=== PATIENT | male | born 1980 | race American Indian/Alaskan Native ===

== ENCOUNTER → 2016-09-12 12:35 | Emergency (ER) | payer MEDICAID ==
[2016-09-12 12:35] VITALS: BMI 27.2
== END | disposition left against medical advice (07) ==
LOC: C.ER 12:35
DX: Z04.8 Encounter for examination and observation for other specified reasons (principal); Z02.9 Encounter for administrative examinations, unspecified

== ENCOUNTER 2016-09-18 20:55 | Inpatient (IN) | payer MEDICAID, OTHER ==
[2016-09-18 20:55] VITALS: BMI 27.2
[2016-09-18 21:48] LABS: BASO # 0.1 K/uL (0.0-0.2); BASO % 1.7 % (0.0-2.0); EOS % 0.1 % (0.0-4.0); HEMATOCRIT 45.8 % (35.0-51.0); LYMPH # 1.4 K/uL (1.0-4.3); LYMPH % 44.7 % (20.0-40.0); MEAN CORPUSCULAR HEMOGLOBIN 28.9 pg (27.0-31.0); MEAN PLATELET VOLUME 6.3 fL (7.2-11.7); MONO # 0.2 K/uL (0.0-0.8); MONO % 7.7 % (0.0-10.0); NRBC % 0.1 % (0.0-2.0); RED CELL DISTRIBUTION WIDTH 14.1 % (11.5-14.5); WHITE BLOOD COUNT 3.1 K/uL (4.8-10.8)
[2016-09-18 21:55] LABS: URINE BILIRUBIN NEGATIVE (NEGATIVE); URINE BLOOD NEGATIVE (NEGATIVE); URINE COLOR Yellow (YELLOW); URINE GLUCOSE (UA) NORMAL (Normal); URINE KETONE NEGATIVE (NEGATIVE); URINE LEUKOCYTE ESTERASE NEG Leu/uL (Negative); URINE PROTEIN NEGATIVE (NEGATIVE); URINE UROBILINOGEN NORMAL mg/dL (0.2-1.0); WBC URINE < 1 /hpf (0-5)
[2016-09-18 21:55] LABS: POTASSIUM 4.4 mmol/L (3.6-5.2)
[2016-09-18 21:58] LABS: ALB/GLOB RATIO 1.3 (1.0-2.1); BILIRUBIN,TOTAL 2.7 mg/dL (0.2-1.3); CALCIUM 8.5 mg/dl (8.6-10.4); TOTAL PROTEIN 7.2 g/dL (6.3-8.3)
--- NOTE | 2016-09-18 23:57 | C.PDOC ---
History Of Present Illness 36 year old male patient presents to the ED for alcohol detox. Patient reports last drink was today but denies drug use. Patient denies nausea, vomiting, diarrhea, fever, chills, suicidal ideation, or any other complaints. Chief Complaint (Nursing): Substance Abuse History Per: Patient History/Exam Limitations: no limitations Onset/Duration Of Symptoms: Hrs Current Symptoms Are (Timing): Still Present Modifying Factor(s): Alcohol Severity: Mild Associated Symptoms: denies: Suicidal Thoughts Recent travel outside of the [place]: No Past Medical History Reviewed: Historical Data, Nursing Documentation, Vital Signs Vital Signs: Last Vital Signs Temp 98.7 F 09/18/16 21:16 Pulse 100 H 09/18/16 21:16 Resp 20 09/18/16 21:16 BP 135/92 H 09/18/16 21:16 Pulse Ox 95 09/19/16 00:02 - Medical History PMH: Anxiety (no meds), Seizures (Alcohol related) Denies: Diabetes, Hepatitis, HIV, HTN, Sexually Transmitted Disease - [facility] Procedures ALCOHOL DETOXIFICATION (01/05/15) ALCOHOLISM COUNSELLING (01/05/15) OTHER GROUP THERAPY (01/05/15) Family History: States: Diabetes - Social History Hx Tobacco Use: No Hx Alcohol Use: Yes Hx Substance Use: No - Immunization History Hx Tetanus Toxoid Vaccination: No Hx Influenza Vaccination: No Hx Pneumococcal Vaccination: No Review Of Systems Except As Marked, All Systems Reviewed And Found Negative. Constitutional: Positive for: Other (Alcohol intoxication. +AOB). Negative for : Fever, Chills Gastrointestinal: Negative for: Nausea, Vomiting, Diarrhea Psych: Negative for: Suicidal ideation Physical Exam - Physical Exam Appears: Non-toxic, No Acute Distress Skin: Warm, Dry Head: Atraumatic, Normacephalic Eye(s): bilateral: Normal Inspection Chest: Symmetrical Cardiovascular: Rhythm Regular, No Murmur Respiratory: Normal Breath Sounds, No Accessory Muscle Use, No Rales, No Rhonchi , No Wheezing Gastrointestinal/Abdominal: Soft, No Tenderness Neurological/Psych: Oriented x3, Normal Speech, Normal Cognition ED Course And Treatment - Laboratory Results Result Diagrams: 09/18/16 21:43 09/18/16 21:43 O2 Sat by Pulse Oximetry: 95 (Room air) Pulse Ox Interpretation: Normal Medical Decision Making Medical Decision Making: Plans: -Alcohol detox -Reassess and disposition Disposition - Disposition Disposition Time: 22:30 Condition: STABLE - Clinical Impression Clinical Impression: Alcohol dependence - Scribe Statement The provider has reviewed the documentation as recorded by the Scribe Maria Del Carmen liu All medical record entries made by the Scribe were at my direction and personally dictated by me. I have reviewed the chart and agree that the record accurately reflects my personal performance of the history, physical exam, medical decision making, and the department course for this patient. I have also personally directed, reviewed, and agree with the discharge instructions and disposition.
[2016-09-19] MEDS: Multiple Vitamins Tab PO SCH (13:22)
--- NOTE | 2016-09-19 13:59 | PCM.PSYCH ---
Initial Psychiatric Evaluation - Initial Psychiatric Evaluation Type of Admission: Voluntary Legal Status: Capacity Chief Complaint (in patient's own words): "I need to stop drinking" History of Present Illness and Precipitating Events: Pt. is a 35 y/o M, employed and domiciled, w/ PMHx of EtOH use disorder. Pt. admits to drinking half a pint of liquor a day. Pt. reports that he has been drinking since he was 21 years old, and he states that he was sober for two years until he relapsed one month ago. Pt.s last drink was at 9pm last night. Pt. denies any recreational drug use. Pt. complains of anxiety, but does not complain of tremors or withdrawal symptoms. Pt. does indeed have a hx of seizures. Pt. is single, w/ 2 children (11 and 3). Pt. states that his FHx is not remarkable for psychiatric illness or substance abuse, however, he admits that everyone in his family drinks. Moving forward, Pt. plans to pursue outpatient counseling and attend AA meetings in order to treat his EtOH use disorder Current Medications: Active Medications Generic Name Dose Route Start Last Admin Trade Name Freq PRN Reason Stop Dose Admin Clonidine HCl 0.1 mg 09/19/16 05:36 09/19/16 12:35 Catapres PO 0.1 mg Q8H PRN Administration Withdrawal Symptoms Clonidine HCl 0.1 mg 09/19/16 12:51 Catapres PO Q4H PRN Symptoms of alcohol withdrawl Folic Acid 1 mg 09/19/16 13:00 09/19/16 13:22 Folic Acid PO Not Given DAILY LAINA Gabapentin 300 mg 09/19/16 14:00 09/19/16 13:26 Neurontin PO 300 mg TID LAINA Administration Hydroxyzine HCl 25 mg 09/19/16 05:36 Atarax PO Q8H PRN Anxiety Lorazepam 1 mg 09/19/16 10:59 09/19/16 11:15 Ativan PO 1 mg Q6 PRN Administration Alcohol withdrawal symptoms Lorazepam 2 mg 09/19/16 13:00 09/19/16 13:26 Ativan PO 09/23/16 12:59 2 mg Q8H LAINA Administration Taper Multivitamins 1 tab 09/19/16 13:00 09/19/16 13:22 Hexavitamin PO Not Given DAILY LAINA Ondansetron HCl 4 mg 09/19/16 07:23 09/19/16 08:09 Zofran Tab PO 4 mg Q6 PRN Administration Nausea/Vomiting Thiamine HCl 100 mg 09/19/16 13:00 09/19/16 13:22 Vitamin B1 Tab PO Not Given DAILY LAINA Trazodone HCl 100 mg 09/19/16 12:51 Desyrel PO HS PRN Insomnia Past Psychiatric History - Past Psychiatric History Previous Treatment History: None Pertinent Medical Hx (Current Medical&Sleep Prob, Allergies): Allergies Allergy/AdvReac Type Severity Reaction Status Date / Time No Known Allergies Allergy Verified 01/05/15 11:55 Naltrexone [Revia] 50 mg PO DAILY #30 tab 01/09/15 traZODone [Desyrel] 50 mg PO HS PRN #30 tab 01/09/15 Review of Systems - Constitutional Constitutional: Fever, Chills, Weakness - Neurological Neurological: Disequilibrium, Lack of Coordination - Psychiatric Psychiatric: Abnormal Sleep Pattern, Anxiety. absent: Hallucinations, Homicidal Ideation, Paranoia, Suicidal Ideation, Visual Hallucinations Mental Status Examination - Personal Presentation Personal Presentation: Looks stated age - Affect Affect: Constricted - Motor Activity Motor Activity: Calm - Reliability in Providing Information Reliability in Providing Information: Good - Speech Speech: Organized, Relevant - Mood Mood: Depressed - Formal Thought Process Formal Thought Process: No Impairment - Obsessions/Compulsions Obsessions: No Compulsions: No - Cognitive Functions Orientation: Person, Place, Situation, Time Sensorium: Alert Attention/Concentration: Attentive Judgement: Intact, as evidence by: Good judgement, Intact, as evidence by: Insight regarding need for hospitalization Memory: Recent intact, as evidence by: Ability to recall events of the day - Risk Risk: Seizure, Withdrawal, Diminished functioning - Strength & Assets Inventory Strength & Assets Inventory: Cooperative DSM 5 DX - DSM 5 DSM 5 Diagnosis: Alcohol withdrawal Alcohol use d/o - severe - Recommended/Plan of Treatment Treatment Recommendations and Plan of Treatment: Alcohol use Disorder Group therapy, individual therapy, and supportive therapy ND and CBT for abstinence Folic ACid 1mg PO daily Multivitamins 1 tab PO Daily Thiamine HCl 100 mg PO HS PRN Alcohol Withdrawal Clonidine 0.1 mg PO Q8H PRN Gabapentin 300 mg PO TID Hydroxyzine 25 mg PO Q8H PRN Anxiety Lorazepam 1 mg PO Q6 PRN Lorazepam 2mg PO detox 32 min Projected ELOS: 4 days Prognosis: good with treatment - Smoking Cessation Smoking Cessation Initiated: Yes
[2016-09-20] MEDS: Multiple Vitamins Tab PO SCH (09:57)
[2016-09-20] MEDS ORDERED: Vitamins A & D Oint UD Foilpak TOP PRN (13:05)
[2016-09-20 13:35] VITALS: RESP 18
[2016-09-21 08:31] LABS: CHLORIDE 97 mmol/L (98-107); POTASSIUM 4.4 mmol/L (3.6-5.2); SODIUM 137 mmol/L (132-148)
[2016-09-21 08:34] LABS: ALB/GLOB RATIO 1.3 (1.0-2.1); ALKALINE PHOSPHATASE 64 U/L (38-126); ALT/SGPT 255 U/L (21-72); AST/SGOT 141 U/L (17-59); BILIRUBIN,TOTAL 2.1 mg/dL (0.2-1.3); BLOOD UREA NITROGEN 5 mg/dL (9-20); CALCIUM 8.3 mg/dl (8.6-10.4); CARBON DIOXIDE 28 mmol/L (22-30); GFR AFRICAN-AMERICAN > 60; GLUCOSE,RANDOM 128 mg/dL (75-110); TOTAL PROTEIN 6.2 g/dL (6.3-8.3)
[2016-09-21] MEDS: Multiple Vitamins Tab PO SCH (09:35)
--- NOTE | 2016-09-21 14:45 | PCM.PYCHPN ---
Psychiatric Progress Note - Psychiatric Progress Note Patient Chief Complaint: "My eyes looked discolored." Problems Identified/Issues Discussed: Pt. was seen, chart was reviewed, and the events of last night were discussed w / team. Pt. reports that he is generally doing well. Pt. denies any withdrawal sx. Pt. complains that his eyes seem discolored. Pt. denies pain, itchiness, and discharge. Upon exam, eyes were nonicteric and noninjected. No evidence of jaundice. Medication Change: No Medical Record Reviewed: Yes Mental Status Examination - Cognitive Function Orientation: Person, Place, Situation, Time - Mood Mood: Depressed, Neutral - Affect Affect: Broad - Speech Speech: Appropriate - Formal Thought Process Formal Thought Process: No Impairment - Suicidal Ideation Suicidal Ideation: No - Homicidal Ideation Homicidal Ideation: No Goal/Treatment Plan - Goal/Treatment Plan Progress Toward Problem(s) and Goals/Treatment Plan: Alcohol use Disorder Group therapy, individual therapy, and supportive therapy NM and CBT for abstinence Folic ACid 1mg PO daily Multivitamins 1 tab PO Daily Thiamine HCl 100 mg PO HS PRN Alcohol Withdrawal Clonidine 0.1 mg PO Q8H PRN Gabapentin 300 mg PO TID Hydroxyzine 25 mg PO Q8H PRN Anxiety Lorazepam 1 mg PO Q6 PRN Lorazepam 2mg PO detox - Smoking Cessation Smoking Cessation Initiated: No
--- NOTE | 2016-09-22 01:25 | PCM.PYCHPN ---
Psychiatric Progress Note - Psychiatric Progress Note Patient seen today, length of contact: 16 min Patient Chief Complaint: "Ok today" Problems Identified/Issues Discussed: The pt is seen, chart reviewed, case discussed with staff. The pt is compliant with medications and reports no side-effects. Symptoms are improving but needs more time to stabilize. After care discussed, support and psychoeducation given. Medication Change: No Medical Record Reviewed: Yes Mental Status Examination - Cognitive Function Orientation: Person, Place, Situation, Time Memory: Intact Attention: WNL Concentration: WNL Association: WNL Fund of Knowledge: Poor - Mood Mood: Depressed, Neutral - Affect Affect: Broad - Speech Speech: Appropriate - Formal Thought Process Formal Thought Process: No Impairment - Suicidal Ideation Suicidal Ideation: No - Homicidal Ideation Homicidal Ideation: No Goal/Treatment Plan - Goal/Treatment Plan Need for Continued Stay: Discharge may exacerbated symptoms, Severe functional impairment Progress Toward Problem(s) and Goals/Treatment Plan: Alcohol use Disorder Group therapy, individual therapy, and supportive therapy [place] and CBT for abstinence Folic Acid 1mg PO daily Multivitamins 1 tab PO Daily Thiamine HCl 100 mg PO HS PRN Alcohol Withdrawal Clonidine 0.1 mg PO Q8H PRN Gabapentin 300 mg PO TID Hydroxyzine 25 mg PO Q8H PRN Anxiety Lorazepam 1 mg PO Q6 PRN Lorazepam 2mg PO detox Refer to [facility] Estimated Date of D/C: 09/22/16
[2016-09-22 06:04] VITALS: BP 126/87; PULSE 86; TEMP 97.8; O2SAT 97
--- NOTE | 2016-09-22 08:30 | PCM.PYCHDC ---
Mental Status Examination - Mental Status Examination Orientation: Person, Place, Situation, Time Memory: Intact Affect: Broad Speech: Appropriate Attention: WNL Concentration: WNL Association: WNL Fund of Knowledge: WNL Formal Thought Process: No Impairment Suicidal Ideation: No Current Homicidal Ideation?: No Discharge Summary - Discharge Note Reason for Hospitalization: Alcohol withdrawal Alcohol use d/o - severe Laboratory Data: Abnormal Lab Results 09/21/16 08:12 Sodium 137 Potassium 4.4 Chloride 97 L Carbon Dioxide 28 Anion Gap 17 BUN 5 L Creatinine 1.1 Est GFR ( Amer) > 60 Est GFR (Non-Af Amer) > 60 Random Glucose 128 H Calcium 8.3 L Total Bilirubin 2.1 H AST 141 H D ALT 255 H D Alkaline Phosphatase 64 Total Protein 6.2 L Albumin 3.5 Globulin 2.8 Albumin/Globulin Ratio 1.3 Consultations:: List each consultation separately and include: 1. Reason for request. 2. Findings. 3. Follow-up Summary of Hospital Course include:: 1. Description of specific treatment plan utilized for patients during their course of treatmen. 2. Summarize the time- course for resolution of acute symptoms and/or regressed behaviors. 3. Describe issues identified and worked on during hospitalization. 4. Describe medication utilized. 5. Describe medical problems identified and treated. 6. Reassessment of suicide risk Summary of Hospital Course: Pt. is a 35 y/o M, employed and domiciled, w/ PMHx of EtOH use disorder. Pt. admits to drinking half a pint of liquor a day. Pt. reports that he has been drinking since he was 21 years old, and he states that he was sober for two years until he relapsed one month ago. Pt.s last drink was at 9pm last night. Pt. denies any recreational drug use. Pt. complains of anxiety, but does not complain of tremors or withdrawal symptoms. Pt. does indeed have a hx of seizures. Pt. is single, w/ 2 children (11 and 3). Pt. states that his FHx is not remarkable for psychiatric illness or substance abuse, however, he admits that everyone in his family drinks. Moving forward, Pt. plans to pursue outpatient counseling and attend AA meetings in order to treat his EtOH use disorder Hospital course: The pt seen, chart reviewed, case discussed. Pt reports excellent mood today. Pt denies thoughts of suicide and thoughts of hurting others. Pt does not have any complaints and is ready for discharge. 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 Here he attended groups, IA/CBT used Risks of meds discussed. Responded well to treatment Detox completed with no complication. Support and psychoeducation given - Final Diagnosis (DSM 5) Condition upon Discharge: IMPROVED DSM 5: Alcohol use d/o - severe Disposition: HOME/ ROUTINE Follow-up Treatment Plan: Continue below meds Attend aftercare: [facility] Attend AA meetings Use relapse prevention skills Return to ER if experience suicidal ideation, homicidal ideation, agitation - Smoking Cessation Smoking Cessation Medication prescribed: No - Antipsychotic Medications Pt discharged on 2 or more routine antipsychotic medications: No
[2016-09-22] MEDS: Multiple Vitamins Tab PO SCH (09:38)
== END 2016-09-22 10:25 | disposition home or self-care (01) | DRG 751 ==
LOC: C.ER 20:55 → C.7D 09-19 04:44
PROVIDERS: ADMIT Psychiatry & Neurology Psychiatry; ATTEND Psychiatry & Neurology Psychiatry
PROC: HZ2ZZZZ Detoxification Services for Substance Abuse Treatment (ICD-10-PCS; principal; 2016-09-19)
DX: F10.239 Alcohol dependence with withdrawal, unspecified (principal)

== ENCOUNTER 2016-09-23 13:38 | Emergency (ER) | payer MEDICAID ==
[2016-09-23 13:38] VITALS: BMI 27.2
[2016-09-23 13:45] VITALS: BP 118/84; PULSE 91; TEMP 98.4; O2SAT 100
[2016-09-23 13:47] VITALS: RESP 20
--- NOTE | 2016-09-23 14:39 | C.PDOC ---
History Of Present Illness 36 y/o male, presents to the ED requesting a change in his medication. Patient states he was discharged from a detox unit yesterday and was given prescriptions for Trazodone and Neurontin. Patient now requests a medication change because the Trazodone gives him bad dreams and the Neurontin gives him nausea and an upset stomach. Patient denies suicidal/homicidal ideation or drug use at this time. Time Seen by Provider: 09/23/16 14:17 Chief Complaint (Nursing): GI Problem History Per: Patient History/Exam Limitations: no limitations Onset/Duration Of Symptoms: Hrs Current Symptoms Are (Timing): Still Present Additional History Per: Patient Past Medical History Reviewed: Historical Data, Nursing Documentation, Vital Signs Vital Signs: Last Vital Signs Temp 98.4 F 09/23/16 13:44 Pulse 91 H 09/23/16 13:44 Resp 20 09/23/16 13:44 BP 118/84 09/23/16 13:44 Pulse Ox 100 09/23/16 17:41 - Medical History PMH: Anxiety (no meds), Seizures (Alcohol related) Surgical History: No Surg Hx - [facility] Procedures ALCOHOL DETOXIFICATION (01/05/15) ALCOHOLISM COUNSELLING (01/05/15) OTHER GROUP THERAPY (01/05/15) Family History: States: Diabetes - Social History Hx Tobacco Use: No Hx Alcohol Use: Yes (former drinker) Hx Substance Use: Yes (former drinker) - Immunization History Hx Tetanus Toxoid Vaccination: No Hx Influenza Vaccination: No Hx Pneumococcal Vaccination: No Review Of Systems Except As Marked, All Systems Reviewed And Found Negative. Gastrointestinal: Positive for: Nausea, Other (+upset stomach ) Psych: Positive for: Other (requesting change in medication ). Negative for: Suicidal ideation Physical Exam - Physical Exam Appears: Non-toxic, No Acute Distress Skin: Normal Color, Warm, Diaphoretic Head: Atraumatic, Normacephalic Eye(s): bilateral: Normal Inspection, EOMI Oral Mucosa: Moist Neck: Supple Chest: Symmetrical, No Deformity Cardiovascular: Rhythm Regular Respiratory: Normal Breath Sounds Extremity: Bilateral: Atraumatic, Normal Color And Temperature, Normal ROM Neurological/Psych: Oriented x3, Normal Speech Gait: Steady ED Course And Treatment O2 Sat by Pulse Oximetry: 100 (on RA) Pulse Ox Interpretation: Normal Medical Decision Making Medical Decision Makin Spoke with Dr Kim who states patient can gradually decrease dose and stop medication in few days. Recommends benadryl for any trouble sleeping. Disposition Counseled Patient/Family Regarding: Need For Followup - Disposition Disposition: HOME/ ROUTINE Disposition Time: 14:38 Condition: STABLE Additional Instructions: You may gradually decrease Neurontin from 3 times per day to twice and then daily to stop medication Take trazadone as needed or take benadryl to help you sleep Instructions: Gabapentin (By mouth), Trazodone (By mouth) - POA Present On Arrival: None - Clinical Impression Clinical Impression: Encounter for medication review - PA / MAINTENANCE TECHNICIAN / Resident Statement MD/DO has reviewed & agrees with the documentation as recorded. - Scribe Statement The provider has reviewed the documentation as recorded by the Scribe (Mya Castillo) All medical record entries made by the Scribe were at my direction and personally dictated by me. I have reviewed the chart and agree that the record accurately reflects my personal performance of the history, physical exam, medical decision making, and the department course for this patient. I have also personally directed, reviewed, and agree with the discharge instructions and disposition.
== END 2016-09-23 14:46 | disposition home or self-care (01) ==
LOC: C.ER 13:38
DX: Z00.8 Encounter for other general examination (principal)